=== PATIENT | male | born 1990 | race Caucasian/White ===

== ENCOUNTER 2019-02-15 11:55 | Emergency (ER) | payer MEDICARE, MEDICAID ==
[~2019-02-15] VITALS: Ht 175.3 cm; Wt 110.7 kg
--- NOTE | 2019-02-15 12:10 | NUR ---
PT BBISELF FOR S/I/HI, "HEARING VOICES"; PT AAOX4, SUICIDE PRECAUTIONS STARTED, PT AMBULATORY, CALM AND COOPERATIVE WITH STAFF. PT VSS, NAD NOTED.
[2019-02-15] MEDS ORDERED: OLANZAPINE 5 MG TABLET ONE (12:20)
[2019-02-15 12:27] LABS: BASOPHILS # (AUTO) 0.1 /CMM (0.0-0.2); BASOPHILS % (AUTO) 1.4 % (0.0-2.0); EOSINOPHILS % (AUTO) 2.3 % (0.0-6.0); HEMATOCRIT 54 % (39-51); HEMOGLOBIN 18.6 g/dL (13.5-17.5); LYMPHOCYTES # (AUTO) 1.9 /CMM (0.8-4.8); MEAN CORPUSCULAR HGB CONC 35 g/dl (31.0-36.0); MEAN CORPUSCULAR VOLUME 84 fL (80-96); MONOCYTES # (AUTO) 0.4 /CMM (0.1-1.30); MONOCYTES % (AUTO) 7.8 % (2.0-12.0); NEUTROPHILS # (AUTO) 3.1 /CMM (1.8-8.9); NEUTROPHILS % (AUTO) 54.5 % (43.0-81.0); PLATELET COUNT (AUTO) 197 /CMM (150-450); RED BLOOD CELL COUNT(AUTO) 6.42 MIL/uL (4.5-6.0); WHITE BLOOD COUNT (AUTO) 5.7 K/uL (4.3-11.0)
[2019-02-15] MEDS ORDERED: OLANZAPINE 5 MG TABLET PO ONE (12:30)
[2019-02-15 12:31] LABS: CALCIUM, SERUM 8.4 mg/dL (8.5-10.1); CARBON DIOXIDE 27 mmol/L (21-32); CHLORIDE 106 mmol/L (98-107); GLUCOSE 143 mg/dL (74-106); POTASSIUM 3.6 mmol/L (3.5-5.1); SODIUM SERUM 141 mmol/L (136-145); UREA NITROGEN, BLOOD 17 mg/dL (7-18)
[2019-02-15 12:44] LABS: ALANINE AMINOTRANSFERASE 29 U/L (12-78); ALBUMIN 3.7 g/dL (3.4-5.0); ALKALINE PHOSPHATASE 82 U/L (46-116); BILIRUBIN,TOTAL 0.3 mg/dL (0.2-1.0); TOTAL PROTEIN, SERUM 7.7 g/dL (6.4-8.2)
[2019-02-15 12:45] LABS: ACETAMINOPHEN 0 ug/ml (10-30); ALCOHOL, BLOOD < 3 mg/dL (0-0)
[2019-02-15 13:02] LABS: ASPARTATE AMINOTRANSFERASE 24 U/L (15-37)
[2019-02-15 13:33] LABS: APPEARANCE,URINE Clear (CLEAR); BILIRUBIN,URINE Negative (NEGATIVE); BLOOD, URINE Negative Ery/uL (NEGATIVE); COLOR,URINE Yellow (YELLOW); KETONES,URINE Trace (NEGATIVE); LEUKOCYTE ESTERASE ,URINE Negative (NEGATIVE); NITRITE, URINE Negative (NEGATIVE); PH,URINE 5.5 (5.0-8.0); PROTEIN,URINE Trace mg/dl (NEGATIVE); UGLUCOSE Negative (NEGATIVE); UROBILINOGEN,URINE 0.2 EU/dL (0.2)
[2019-02-15 13:40] LABS: BACTERIA,URINE None seen /HPF (None Seen); RBC,URINE 0-3 /HPF (0-2); SQUAMOUS EPITHELIAL CELL,UR Few /HPF (None Seen); WBC,URINE 0-2 /HPF (0-3)
--- NOTE | 2019-02-15 15:40 | NUR ---
PT REQST FOR LUNCH/MEAL, OKAY WITH ER . ORDERED LUNCH TRAY FROM DIETARY
--- NOTE | 2019-02-15 18:35 | NUR ---
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
--- NOTE | 2019-02-15 19:00 | NUR ---
PER REMBERTO, PT MIGHT BE ACCEPTED AT [place], CONSTRUCTION EQUIPMENT TECHNICIAN AWARE. ALL PPW IN CHART.
--- NOTE | 2019-02-15 19:30 | NUR ---
REPORT SUZETTE TO ZACH GLASGOW FOR [facility]
--- NOTE | 2019-02-15 19:30 | NUR ---
RECEIVED REPORT FROM ADELFO GLASGOW FOR [facility]
--- NOTE | 2019-02-15 19:43 | NUR ---
MISAEL CALLED TO GIVE REPORT TO KARINA. ACCEPTING DR. KEARNEY. BED [id number]. FOR REPORT.
--- NOTE | 2019-02-15 19:53 | NUR ---
CALLED LAURA TO [facility]. 30 MINUTE ETA. TRIP NUMBER [id number].
--- NOTE | 2019-02-15 19:55 | NUR ---
GAVE REPORT TO LEANNE GLASGOW FROM [place] FOR [facility]
--- NOTE | 2019-02-15 20:20 | NUR ---
REPORT GIVEN TO LAURA FOR TRANSPORTATION [facility]
[2019-02-15 20:38] VITALS: BP 122/76
== END 2019-02-15 20:40 | disposition short-term general hospital (02) ==
LOC: ER 12:06
DX: F29 Unspecified psychosis not due to a substance or known physiological condition (principal); F31.9 Bipolar disorder, unspecified; F20.9 Schizophrenia, unspecified; F10.10 Alcohol abuse, uncomplicated; Y90.0 Blood alcohol level of less than 20 mg/100 ml
CPT/HCPCS: 36415; 80048; 80076; 80305; 80307; 80329; 81001; 85025; 99285; G0480; 81000-TC